=== PATIENT | female | born 1940 | race Caucasian/White ===

== ENCOUNTER → 2024-07-11 | Outpatient (REF) | payer MEDICARE ==
[~2024-07-11] MED LIST: ASPIRIN81 M2 PO; CALCIUM D PO; IRON PO; TRIGLIDE160 M1 PO; VITAMIN B12 PO; Z.0.ACCUPRIL20 MG PO; Z.0.ACTONEL150 MG PO; Z.0.GLIPIZIDE XL10 M PO; Z.0.INDOMETHACIN50 M PO; Z.0.MULTIVITAMINS1 E PO; Z.0.NEXIUM40 MG PO; Z.0.NORVASC10 MG PO; Z.0.REGLAN10 MG PO; Z.1.HYDROCHLOROTH12. PO; Z.2.METFORMIN HCL500 PO; [UNRECOGNIZED DRUG - OTHER] PO; [UNRECOGNIZED DRUG - OTHER] PO
== END ==
LOC: US 10:38
PROVIDERS: ATTEND Nurse Practitioner
DX: R10.9 Unspecified abdominal pain (principal)
CPT/HCPCS: 76700; 76856